=== PATIENT | male | born 1980 | race American Indian/Alaskan Native ===

== ENCOUNTER 2023-06-25 09:53 | Emergency (ER) | payer SELFPAY | END 2023-06-25 11:42 | disposition home or self-care (01) | LOC: DL.ED 09:53 | DX: H72.91 Unspecified perforation of tympanic membrane, right ear (principal); Z87.891 Personal history of nicotine dependence | CPT/HCPCS: 99282 ==

== ENCOUNTER 2023-07-03 09:53 | Emergency (ER) | payer SELFPAY | END 2023-07-03 10:33 | disposition home or self-care (01) | LOC: DL.ED 09:53 | DX: H10.33 Unspecified acute conjunctivitis, bilateral (principal); Z87.891 Personal history of nicotine dependence | CPT/HCPCS: 99282 ==

== ENCOUNTER 2025-05-29 18:54 | Emergency (ER) | payer SELFPAY | END 2025-05-29 21:33 | disposition home or self-care (01) | LOC: DL.ED 18:54 | DX: J32.0 Chronic maxillary sinusitis (principal) | CPT/HCPCS: 70150; 99283 ==